=== PATIENT | female | born 1955 | race Caucasian/White ===

== ENCOUNTER 2021-12-21 18:14 | Inpatient (IN) | payer MEDICARE, MEDICAID, SELFPAY ==
--- NOTE | ~2021-12-21 | XR_ITS ---
EXAMINATION: XR CHEST CLINICAL INFORMATION: Cough and shortness of breath. COMPARISON: None TECHNIQUE: Frontal view of the chest was obtained. FINDINGS: No significant abnormality is noted involving the heart, lungs, mediastinum, bony thorax or soft tissues. There is multi-level thoracic spondylosis. XR/XR chest 1V IMPRESSION: Unremarkable examination.
[2021-12-21 18:44] VITALS: BP 137/75; PULSE 72; RESP 16; TEMP 36.6; O2SAT 97
--- NOTE | 2021-12-21 19:26 | PC.ADMIT ---
Patient is a 66 year old female admitted from [facility]. Patient arrived at the unit at 18:23 with a legal status of a CV. Patient is Patient alert and oriented x 1, to self. Patient disoriented to place, time, and situation. Patient appears to be disorganized with delusions. Patient was unable to participate in the admission process d/t mental status. Per crisis evaluation Patient eloped from respite on Tuesday, 12/18. Today the patient was assessed by [employer] and was found to be delusional, believes her leg is broken, and that a staff member is trying to abduct her. Upon assessment this evening the patient presents with delusional statements and thinking. ?I think that I am a few weeks ?. ?I feel the presence of Erika with me, do you feel Erika here??. Patient stated to a peer ?let's go to [employer] and tell them I say they have to give me all the money?. Patient reported ?Sometimes I see my son, but then he isn?t there?. Patient also reported AH ?I hear Erika at times, but when she is not with me?. Patient denies SI/HI. Presents with poor dentition. No upper teeth. Reports that My bottom teeth hurt, can you pull them out here or send me to an oral surgeon . Vital signs are stable, and within normal limits. No ebema is noted. Some healing bruises on BLE. Purplish bruises noted on the right arm, appears to be an IV site. No acute distress noted or reported. Full medical history unable to be obtained d/t mental status. 15 minute safety checks initiated. Patient reported to be a smoker since she was 15, smoking a pack a day. Noted to ambulate independently with a steady gait. No physical complaints reported at this time.
[2021-12-21] MEDS: traZODone HCL 50 MG TABLET PO (20:59)
[2021-12-22 08:00] VITALS: BP 92/59; PULSE 88; RESP 16; TEMP 36.8; O2SAT 97
[2021-12-22 09:51] LABS: Estimated Average Glucose 103 mg/dL; Hemoglobin A1c % 5.2 %
[2021-12-22 10:45] LABS: Folate 17.2 ng/mL (> or = 4.0); Vitamin B12 598 pg/mL (200-900)
[2021-12-22] MEDS: Acetaminophen 325 MG TABLET 650 MG PO ×2 (10:56→17:15)
--- NOTE | 2021-12-22 12:08 | HO.PM.IMCN ---
History of Present Illness Data of Consult Service Date: 12/22/21 Requesting physician: Rose Schumacher Primary Care Provider: Unknown Physician HPI Reason for consult: internal med H&P 66 year old female who is a 1/2-1 ppd cigarette smoker without known medical history admitted to psychiatry from [facility] ED on section 12 for psychosis. Patient is disoriented with disorganized, fragmented thought process and unable to provide most history. Able to answer basic questions with short sentences and has no complaints today. She does report chronic occasional shortness of breath and cough and is an every day smoker. No known history of chronic lung disease. Review of Systems Review of Systems: ROS limited due to patient mental status. General: +fatigue. No fevers, malaise, unintentional weight loss HEENT: No blurred vision Cardiovascular: No chest pain Respiratory: +sob, +cough. GI: No abdominal pain, nausea, vomiting, diarrhea, constipation Neuro: No headaches, weakness, paresthesias Skin: No rashes or lesions PMFSH Medical History Chronic cough Current every day smoker Psychosis Family History (Updated 12/22/21 @ 12:19 by SHERYL Becerra) Other No significant family history Pertinent family history: Unable to fully ascertain due to pt mental status Surgical History History of appendectomy Social History Household Members: Other Household Members Other:: respite Housing: Other Housing Other:: respite Do you presently have visiting nurse or other home services: No Unable to assess alcohol history related to: Unable to respond Patient Tobacco Use Status: Current everyday Tobacco user Tobacco use type: Cigarette Cigarette Packs Per Day: 1 Cigarettes Per Day: 20.0 Smoked in Last 30 Days: Yes e-Cigarette/Vaping Use: Never Used Patient Interested in Nicotine Replacement: Yes Patient Given Instructions on How to Stop Smoking: No Use of substances other than those prescribed or required for medical reasons: Unknown Substance Use Type Other:: Patient unable to participate d/t mental status. Currently Displaying Signs/Symptoms of Drug Intoxication Withdrawal: No Spiritual Healthcare Practices: Patient unable to participate d/t mental status. Cheondoism Healthcare Practices: Patient unable to participate d/t mental status. Cultural Healthcare Practices: Patient unable to participate d/t mental status. Advance Directives: No Advance Directives Information Provided: No Do you have thoughts of harming others: None Do you have a plan to hurt others: No Plan Recently lost weight without trying: Unsure How much weight loss: Unsure Nutrition Risks: Dental problems Patient : No : No Poor oral hygiene: Yes service: No Sexual orientation: Don't Know Meds Allergies Allergy/AdvReac Type Severity Reaction Status Date / Time doxycycline Allergy Unknown Unknown Verified 12/21/21 18:32 erythromycin base Allergy Unknown Unknown Verified 12/21/21 18:32 Sulfa (Sulfonamide Allergy Unknown Unknown Verified 12/21/21 18:32 Antibiotics) olanzapine AdvReac Unknown Unknown Verified 12/21/21 18:26 Active Medications: Current Medications Acetaminophen (Acetaminophen 325 Mg Tablet) 650 mg PO Q6H PRN PRN Reason: Headache/Pain Mild Scale (1-3) Last Admin: 12/22/21 10:56 Dose: 650 mg Al Hydroxide/Mg Hydroxide (Magnesium Hydrox/Alum Hydrox 30 Ml Oral.Susp) 30 ml PO Q6H PRN PRN Reason: Heartburn/Nausea Benztropine Mesylate (Benztropine Mesylate 1 Mg Tablet) 1 mg PO DAILY DAVID Guaifenesin (Guaifenesin La 600 Mg Tab.Er.12h) 1,200 mg PO BID DAVID Hydroxyzine HCl (Hydroxyzine Hcl 25 Mg Tablet) 25 mg PO Q6H PRN PRN Reason: Anxiety Magnesium Hydroxide (Milk Of Magnesia 30 Ml Oral.Susp) 30 ml PO DAILY PRN PRN Reason: Constipation Multivitamins/Vitamin C (Multivitamin Tablet) 1 tab PO DAILY DAVID Risperidone (Risperidone 3 Mg Tablet) 3 mg PO BEDTIME DAVID Trazodone HCl (Trazodone Hcl 50 Mg Tablet) 50 mg PO BEDTIME PRN PRN Reason: Insomnia Last Admin: 12/21/21 20:59 Dose: 50 mg Home Medications Medication Instructions Recorded Confirmed Last Taken Type Mucinex 1,200 mg PO Q12H 12/22/21 12/22/21 Unknown History Vitamin 1 tab PO DAILY 12/22/21 12/22/21 Unknown History Risperdal 7.5 mg PO QPM 12/22/21 12/22/21 Unknown History benztropine 1 mg tablet 1 mg PO DAILY 12/22/21 12/22/21 Unknown History Physical Exam Vital Signs and Narrative: Vital Signs: Last Vital Signs Temp 98.2 F 12/22/21 08:00 Pulse 88 12/22/21 08:00 Resp 16 12/22/21 08:00 BP 92/59 L 12/22/21 08:00 Pulse Ox 97 12/22/21 08:00 O2 Del Method 12/22/21 08:00 Constitutional - Awake and Alert, No apparent distress Eyes - PERRLA, EOMI Cardiovascular - S1S2, RRR, No edema Respiratory - Normal lung expansion, Normal respiratory effort, No respiratory distress, CTA bilaterally Gastrointestinal - NT / ND; +BS; No rebound or guarding Extremities - no calf tenderness bilaterally, no swelling Musculoskeletal - Normal inspection, normal ROM Skin - Warm/Dry Neurological - Alert & oriented to self and place, disoriented to time. Pt unable to comply with cranial nerve testing, PERRLA, EOM appear to be intact Psychological - Flat affect, disoriented, disorganized thinking with short fragmented responses Results Labs Labs: Laboratory Results - last 24 hr 12/22/21 12/22/21 09:22 09:22 Estimat Average Glucose 103 Hemoglobin A1c % 5.2 Vitamin B12 598 Folate 17.2 ECG Attestation: I personally reviewed and interpreted this ECG as follows: ECG interpretation date: 12/22/21 Interpretation: From Hollis Rogers, 12/21. Sinus bradycardia, rate 55, no St-T wave abnormalities. No prior EKG for review Assessment and Plan (1) Psychosis: Status: Acute Plan 66 year old female who is a 1.2-1ppd smoker without known medical history admitted to psychiatry for psychosis seen in consult for medical H&P on admission. 1- Psychosis- likely chronic associated with underlying psychiatric condition -Plan per psychiatry 2-Chronic cough/occassional shortness of breath -Likely secondary to smoking history with suspected underlying COPD -CXR ordered -Recommend albuterol updraft for sob prn and continue guaifenesin prn -Would likely benefit from outpatient PFT and pcp follow up outpt 3-Cigarette smoke- 1/2-1ppd -Recommend cessation counseling -Recommend 21mg nicotine patch daily for NRT
--- NOTE | 2021-12-22 17:11 | P.HPPS_ITS ---
HPI Date of Service: 12/22/21 Chief Complaint: Psychosis Sources of Information: patient interviewed, chart reviewed and crisis/core team assessment reviewed HPI Subjective Notes: Luna Warning and Conditional Voluntary Narrative: The patient is a 66-year-old female, , mother of adult children, resident of [facility] waiting for permanent placement, referred from [facility] emergency department for exacerbation of disorganized behavior. The patient was a resident of [facility] in [place] and she eloped. According to the crisis report, the patient [facility] [place] and went to her old apartment that was empty at this moment. On the emergency room, the patient was grossly disorganized with several layers of clothing, with disorganized behavior and thought process unable to take care of herself, with inpatient level care of criteria. She was transferring to this facility for psychiatric stabilization. According to the crisis report, the patient was admitted in August 2021 for psychosis and discharged to [facility] in [place] waiting for permanent housing and from there she eloped. During the interview, the patient was a very poor historian she stated that she is taking Risperdal 7.5 mg p.o. q.h.s. and Cogentin 2 mg at bedtime. She was pleasant, cooperative but extremely disoriented and confused, unable to provide reliable information. She complained also of problems with her teeth. We discussed with the patient about treatment options and she agreed to continue taking her regular medications. She denies active suicidal ideation and she is able to contract for safety in the facility. At this moment, we will have any other collateral information. The patient is a very poor historian. Past Psychiatric History: According to the [facility] crisis report, the patient was admitted on August of 2021 for psychosis and transferred to [facility]. The patient is unable to provide further information regarding of previous admissions but apparently she carries the diagnosis of schizophrenia. The review her old chart and in her 40s she was admitted into this facility for possibility of seizures and alcohol use disorder. The patient denies adamantly current use of alcohol Medical Evaluation Reviewed: Hospitalist Jd Pending [facility] Medical History Chronic cough Current every day smoker Psychosis Surgical History History of appendectomy Family History: Denies Social History: Limited social support, the patient was living alone by herself but she lost her apartment. She stated that she was and she has been divorce and she has elderly children. Substance History: History of past alcohol use disorder, she denies current use Trauma History: Denies Diagnostics Vital Signs (24Hr): Vital Signs - 24 hr 12/21/21 18:44 12/22/21 08:00 Temperature 97.9 F 98.2 F Pulse Rate 72 88 Respiratory Rate 16 16 Blood Pressure 137/75 92/59 L Pulse Oximetry 97 97 Oxygen Delivery Method Room Air Room Air Labs Labs: Laboratory Results - last 48 hr 12/22/21 12/22/21 09:22 09:22 Estimat Average Glucose 103 Hemoglobin A1c % 5.2 Vitamin B12 598 Folate 17.2 Meds/Allergies Meds Home Medications Medication Instructions Recorded Confirmed Type Mucinex 1,200 mg PO Q12H 12/22/21 12/22/21 History Vitamin 1 tab PO DAILY 12/22/21 12/22/21 History Risperdal 7.5 mg PO QPM 12/22/21 12/22/21 History benztropine 1 mg tablet 1 mg PO DAILY 12/22/21 12/22/21 History Allergies Allergies Allergy/AdvReac Type Severity Reaction Status Date / Time doxycycline Allergy Unknown Unknown Verified 12/21/21 18:32 erythromycin base Allergy Unknown Unknown Verified 12/21/21 18:32 Sulfa (Sulfonamide Allergy Unknown Unknown Verified 12/21/21 18:32 Antibiotics) olanzapine AdvReac Unknown Unknown Verified 12/21/21 18:26 Mental Status Exam Mental Status Exam Patient Appearance: Appropriate Patient Orientation: Person and Situation Level of Consciousness: Awake and Appropriate Patient Behavior: Cooperative Mood Description: Withdrawn Affect Description: Labile Patient Cognition Impaired: Yes Ability to Follow Directions: Good Speech Pattern: Clear Hallucinations: None Delusions: Paranoid Ideation Thought Process: Distracted and Evasive Thought Content: positive for [place], positive for Poverty of Content and positive for Loose Associations Judgement: Fair Assessment & Plan Assessment & Plan (1) Psychosis: Status: Acute Code(s): F29 - Unspecified psychosis not due to a substance or known physiological condition Plan The patient is an elderly female with limited social support and possible schizophrenia who [facility] [place] and 1 back to her old apartment. The patient is grossly disorganized, very poor historian and unable to take care of herself. Plan 1. Gather collateral information. 2. Continue with Risperdal Cogentin and other medications according to the medication reconciliation form. 3. Medical Treatment Patient educated on: diagnosis and therapeutic strategies Informed Consent: further education needed Reason for continued inpatient stay Substantial Risk for: inability to function, rapid decompensation and med/psych decompensation
[2021-12-22] MEDS: Benztropine Mesylate 1 MG TABLET 2 MG PO (20:35)
[2021-12-22 20:41] VITALS: BP 121/68; PULSE 64; RESP 16; TEMP 36.3; O2SAT 93
[2021-12-23] MEDS: traZODone HCL 50 MG TABLET PO ×2 (02:34→20:04)
[2021-12-23 05:56] VITALS: BMI 25.9
[2021-12-23 08:00] VITALS: BP 124/65; PULSE 68; RESP 16; TEMP 35.7; O2SAT 96
[2021-12-23] MEDS: Multivitamin TABLET 1 TAB PO (08:24)
[2021-12-23] MEDS: Acetaminophen 325 MG TABLET 650 MG PO (08:31)
--- NOTE | 2021-12-23 16:22 | HO.PSYCHPN ---
Subjective Subjective Date of Service: 12/23/21 Reason For Visit: Psychosis Subjective Notes: Conditional Voluntary Interim History: The nursing staff reported the patient has been delusional stating that she had been . Chest x-ray came back unremarkable and she has COPD because she is a heavy smoker. On interview the patient denies new symptoms . Mental Status Exam Mental Status Exam Patient Appearance: Well Grooomed Patient Orientation: Person and Situation Level of Consciousness: Awake Patient Behavior: Cooperative Mood Description: Constricted Affect Description: Withdrawn Patient Cognition Impaired: Yes Ability to Follow Directions: Good Speech Pattern: Clear Hallucinations: None Delusions: Paranoid Ideation and Bizarre Thought Content: positive for Loose Associations Judgement: Fair Diagnostics Vital Signs (24Hr): Vital Signs - 24 hr 12/22/21 20:41 12/23/21 08:00 Temperature 97.3 F 96.2 F L Pulse Rate 64 68 Respiratory Rate 16 16 Blood Pressure 121/68 124/65 Pulse Oximetry 93 96 Oxygen Delivery Method Room Air Room Air BMI result Body Mass Index 25.9 Labs Labs: Laboratory Results - last 48 hr 12/22/21 12/22/21 09:22 09:22 Estimat Average Glucose 103 Hemoglobin A1c % 5.2 Vitamin B12 598 Folate 17.2 Imaging Radiology Impressions: ITS Impressions Chest X-Ray 12/22/21 13:29 IMPRESSION: Unremarkable examination. Medications Medications Current Medications Acetaminophen (Acetaminophen 325 Mg Tablet) 650 mg PO Q6H PRN PRN Reason: Headache/Pain Mild Scale (1-3) Last Admin: 12/23/21 08:31 Dose: 650 mg Al Hydroxide/Mg Hydroxide (Magnesium Hydrox/Alum Hydrox 30 Ml Oral.Susp) 30 ml PO Q6H PRN PRN Reason: Heartburn/Nausea Benztropine Mesylate (Benztropine Mesylate 1 Mg Tablet) 2 mg PO BEDTIME DAVID Last Admin: 12/22/21 20:35 Dose: 2 mg Hydroxyzine HCl (Hydroxyzine Hcl 25 Mg Tablet) 25 mg PO Q6H PRN PRN Reason: Anxiety Magnesium Hydroxide (Milk Of Magnesia 30 Ml Oral.Susp) 30 ml PO DAILY PRN PRN Reason: Constipation Multivitamins/Vitamin C (Multivitamin Tablet) 1 tab PO DAILY DAVID Last Admin: 12/23/21 08:24 Dose: 1 tab Nicotine Polacrilex (Nicotine Polacrilex 2 Mg Gum) 2 mg BUCCAL Q2H PRN PRN Reason: tobacco cravings Risperidone 6 mg/ Risperidone (1 mg/ Risperidone 0.5 mg) 7.5 mg PO BEDTIME DAVID Last Admin: 12/22/21 20:55 Dose: 7.5 mg Trazodone HCl (Trazodone Hcl 50 Mg Tablet) 50 mg PO BEDTIME PRN PRN Reason: Insomnia Last Admin: 12/23/21 02:34 Dose: 50 mg Allergies Allergies Allergy/AdvReac Type Severity Reaction Status Date / Time doxycycline Allergy Unknown Unknown Verified 12/21/21 18:32 erythromycin base Allergy Unknown Unknown Verified 12/21/21 18:32 Sulfa (Sulfonamide Allergy Unknown Unknown Verified 12/21/21 18:32 Antibiotics) olanzapine AdvReac Unknown Unknown Verified 12/21/21 18:26 Assessment & Plan Assessment & Plan (1) Psychosis: Status: Acute Code(s): F29 - Unspecified psychosis not due to a substance or known physiological condition Plan 66 year old female who is a 1.2-1ppd smoker without known medical history admitted to psychiatry for psychosis seen in consult for medical H&P on admission. 1- Psychosis- likely chronic associated with underlying psychiatric condition -Plan per psychiatry 2-Chronic cough/occassional shortness of breath -Likely secondary to smoking history with suspected underlying COPD -CXR ordered -Recommend albuterol updraft for sob prn and continue guaifenesin prn -Would likely benefit from outpatient PFT and pcp follow up outpt 3-Cigarette smoke- 1/2-1ppd -Recommend cessation counseling -Recommend 21mg nicotine patch daily for NRT I spent ___20___ minutes with the patient and/or on the patient floor today, greater than?50% of which was spent counseling/coordinating care. Reason for contiued inpatient stay Substantial Risk for: inability to function, rapid decompensation and med/psych decompensation
[2021-12-23 18:00] VITALS: BP 125/58; PULSE 71; RESP 18; TEMP 36.4; O2SAT 94
[2021-12-23] MEDS: Benztropine Mesylate 1 MG TABLET 2 MG PO (20:04)
[2021-12-23] MEDS: Magnesium Hydrox/Alum Hydrox 30 ML ORAL.SUSP PO (20:30)
[2021-12-24] MEDS: traZODone HCL 50 MG TABLET PO (02:10)
[2021-12-24 07:00] VITALS: BP 131/72; PULSE 64; RESP 17; TEMP 35.9; O2SAT 96
[2021-12-24 08:16] LABS: Estimated Average Glucose 103 mg/dL; Hemoglobin A1c % 5.2 %
[2021-12-24 08:24] LABS: Alanine Aminotransferase 18 U/L (0-31); Albumin Level 3.7 g/dL (3.5-5.0); Alkaline Phosphatase 74 U/L (39-117); Anion Gap 13 (12-20); Aspartate Amino Transferase 16 U/L (5-31); Bilirubin Total 0.3 mg/dL (0.0-1.0); Blood Urea Nitrogen 15 mg/dL (9-16); Calcium 8.7 mg/dL (8.4-10.2); Carbon Dioxide 27 mmol/L (22-29); Chloride 99 mmol/L (96-108); Cholesterol 146 mg/dL; Creatinine Clr Calc Pharmacy 71.1; Estimated Glomerular Filt Rate > 60; Glucose Fasting 101 mg/dL (60-99); HDL Cholesterol 53 mg/dL; LDL Cholesterol Calculated 73 mg/dl; Potassium 4.7 mmol/L (3.3-5.1); Sodium 134 mmol/L (135-145); Total Protein 6.2 g/dL (6.5-8.0); Triglycerides 102 mg/dL
[2021-12-24 08:46] LABS: TSH reflex Free T4 1.21 uIU/mL (0.32-4.0)
[2021-12-24] MEDS: Acetaminophen 325 MG TABLET 650 MG PO ×2 (09:55→20:15)
[2021-12-24] MEDS: Magnesium Hydrox/Alum Hydrox 30 ML ORAL.SUSP PO ×3 (09:55→22:55)
--- NOTE | 2021-12-24 15:54 | HO.PSYCHPN ---
Subjective Subjective Date of Service: 12/24/21 Reason For Visit: Psychosis Subjective Notes: Conditional Voluntary Interim History: The nursing staff reported the patient has been delusional stating that she had been . Chest x-ray came back unremarkable and she has COPD because she is a heavy smoker. On interview the patient denies new symptoms . Mental Status Exam Mental Status Exam Patient Appearance: Well Grooomed Patient Orientation: Person and Situation Level of Consciousness: Awake Patient Behavior: Cooperative Mood Description: Constricted Affect Description: Withdrawn Patient Cognition Impaired: Yes Ability to Follow Directions: Good Speech Pattern: Clear Hallucinations: None Delusions: Paranoid Ideation and Bizarre Thought Content: positive for Loose Associations Judgement: Fair Diagnostics Vital Signs (24Hr): Vital Signs - 24 hr 12/23/21 18:00 Temperature 97.6 F Pulse Rate 71 Respiratory Rate 18 Blood Pressure 125/58 L Pulse Oximetry 94 Oxygen Delivery Method Room Air BMI result Body Mass Index 25.9 Labs Results: 12/24/21 08:00 Labs: Laboratory Results - last 48 hr 12/24/21 12/24/21 08:00 08:00 Sodium 134 L Potassium 4.7 Chloride 99 Carbon Dioxide 27 Anion Gap 13 BUN 15 Creatinine 0.73 Estim Creat Clear Calc 71.1 Estimated GFR > 60 Fasting Glucose 101 H Estimat Average Glucose 103 Hemoglobin A1c % 5.2 Calcium 8.7 Total Bilirubin 0.3 AST 16 ALT 18 Alkaline Phosphatase 74 Total Protein 6.2 L Albumin 3.7 Triglycerides 102 Cholesterol 146 LDL Cholesterol, Calc 73 HDL Cholesterol 53 TSH 1.21 Imaging Radiology Impressions: ITS Impressions Chest X-Ray 12/22/21 13:29 IMPRESSION: Unremarkable examination. Medications Medications Current Medications Acetaminophen (Acetaminophen 325 Mg Tablet) 650 mg PO Q6H PRN PRN Reason: Headache/Pain Mild Scale (1-3) Last Admin: 12/24/21 09:55 Dose: 650 mg Al Hydroxide/Mg Hydroxide (Magnesium Hydrox/Alum Hydrox 30 Ml Oral.Susp) 30 ml PO Q6H PRN PRN Reason: Heartburn/Nausea Last Admin: 12/24/21 14:48 Dose: 30 ml Benztropine Mesylate (Benztropine Mesylate 1 Mg Tablet) 2 mg PO BEDTIME DAVID Last Admin: 12/23/21 20:04 Dose: 2 mg Hydroxyzine HCl (Hydroxyzine Hcl 25 Mg Tablet) 25 mg PO Q6H PRN PRN Reason: Anxiety Magnesium Hydroxide (Milk Of Magnesia 30 Ml Oral.Susp) 30 ml PO DAILY PRN PRN Reason: Constipation Multivitamins/Vitamin C (Multivitamin Tablet) 1 tab PO DAILY [facility] Last Admin: 12/24/21 09:56 Dose: Not Given Nicotine Polacrilex (Nicotine Polacrilex 2 Mg Gum) 2 mg BUCCAL Q2H PRN PRN Reason: tobacco cravings Risperidone 6 mg/ Risperidone (1 mg/ Risperidone 0.5 mg) 7.5 mg PO BEDTIME [facility] Last Admin: 12/23/21 20:05 Dose: 7.5 mg Trazodone HCl (Trazodone Hcl 50 Mg Tablet) 50 mg PO BEDTIME PRN PRN Reason: Insomnia Last Admin: 12/24/21 02:10 Dose: 50 mg Allergies Allergies Allergy/AdvReac Type Severity Reaction Status Date / Time doxycycline Allergy Unknown Unknown Verified 12/21/21 18:32 erythromycin base Allergy Unknown Unknown Verified 12/21/21 18:32 Sulfa (Sulfonamide Allergy Unknown Unknown Verified 12/21/21 18:32 Antibiotics) olanzapine AdvReac Unknown Unknown Verified 12/21/21 18:26 Assessment & Plan Assessment & Plan (1) Psychosis: Status: Acute Code(s): F29 - Unspecified psychosis not due to a substance or known physiological condition Plan 66 year old female who is a 1.2-1ppd smoker without known medical history admitted to psychiatry for psychosis seen in consult for medical H&P on admission. 1- Psychosis- likely chronic associated with underlying psychiatric condition -Plan per psychiatry 2-Chronic cough/occassional shortness of breath -Likely secondary to smoking history with suspected underlying COPD -CXR ordered -Recommend albuterol updraft for sob prn and continue guaifenesin prn -Would likely benefit from outpatient PFT and pcp follow up outpt 3-Cigarette smoke- 1/2-1ppd -Recommend cessation counseling -Recommend 21mg nicotine patch daily for NRT Eight Continue Risperdal discharge planning I spent minutes with the patient and/or on the patient floor today, greater than?50% of which was spent counseling/coordinating care. Reason for contiued inpatient stay Substantial Risk for: rapid decompensation
[2021-12-24 18:00] VITALS: BP 111/59; PULSE 69; RESP 17; TEMP 36.8; O2SAT 93
[2021-12-24] MEDS: Benztropine Mesylate 1 MG TABLET 2 MG PO (20:06)
[2021-12-25] MEDS: Multivitamin TABLET 1 TAB PO (08:57)
[2021-12-25 09:10] VITALS: BP 126/60; PULSE 78; RESP 16; TEMP 35.8; O2SAT 96
[2021-12-25] MEDS: Acetaminophen 325 MG TABLET 650 MG PO ×2 (11:51→17:55)
[2021-12-25 18:00] VITALS: BP 117/55; PULSE 71; RESP 16; TEMP 36.7; O2SAT 94
[2021-12-25] MEDS: Benztropine Mesylate 1 MG TABLET 2 MG PO (19:57)
[2021-12-25] MEDS: traZODone HCL 50 MG TABLET PO (19:58)
[2021-12-25] MEDS: Magnesium Hydrox/Alum Hydrox 30 ML ORAL.SUSP PO (20:41)
[2021-12-25] MEDS: guaiFENesin 100 MG/5 ML LIQUID PO (20:41)
--- NOTE | 2021-12-25 23:59 | P.PNPSI_ITS ---
Subjective Subjective Date of Service: 12/25/21 Reason For Visit: Psychosis Healthcare Proxy: No Guardianship: No Interim History: pt withdrawn paranoid concerns pos brenner limited insight needs cueing for ADL Medication Compliance: Yes Mental Status Exam Mental Status Exam Patient Appearance: Appropriate Patient Orientation: Person Level of Consciousness: Awake and Alert Patient Behavior: Talkative, Cooperative, Distractible, Confused and Good Eye Contact Mood Description: Calm and Withdrawn Affect Description: Calm and Withdrawn Patient Cognition Impaired: Yes Ability to Follow Directions: Poor Speech Pattern: Spontaneous Speech Memory Description: Remote Impaired, Immediate Impaired, Halfway Impaired and Episodic Impaired Hallucinations: None Delusions: Not Present Perceptual Disturbances: Derealization Thought Process: Disoriented, Illogical, Distracted, Slowed Thinking and Confusion Thought Content: positive for Flight of Ideas, positive for Loose Associations, positive for Slowed Thinking, positive for Tangential and positive for Disorganized Depressive Symptoms: Loss of Energy Judgement: Poor Diagnostics Vital Signs (24Hr): Vital Signs - 24 hr 12/25/21 09:10 12/25/21 18:00 Temperature 96.4 F L 98.1 F Pulse Rate 78 71 Respiratory Rate 16 16 Blood Pressure 126/60 117/55 L Pulse Oximetry 96 94 Oxygen Delivery Method Room Air Room Air BMI result Body Mass Index 25.9 Labs Results: 12/28/21 07:48 Labs: Laboratory Results - last 48 hr 12/24/21 12/24/21 08:00 08:00 Sodium 134 L Potassium 4.7 Chloride 99 Carbon Dioxide 27 Anion Gap 13 BUN 15 Creatinine 0.73 Estim Creat Clear Calc 71.1 Estimated GFR > 60 Fasting Glucose 101 H Estimat Average Glucose 103 Hemoglobin A1c % 5.2 Calcium 8.7 Total Bilirubin 0.3 AST 16 ALT 18 Alkaline Phosphatase 74 Total Protein 6.2 L Albumin 3.7 Triglycerides 102 Cholesterol 146 LDL Cholesterol, Calc 73 HDL Cholesterol 53 TSH 1.21 Imaging Radiology Impressions: ITS Impressions Chest X-Ray 12/22/21 13:29 IMPRESSION: Unremarkable examination. Medications Medications Current Medications Acetaminophen (Acetaminophen 325 Mg Tablet) 650 mg PO Q6H PRN PRN Reason: Headache/Pain Mild Scale (1-3) Last Admin: 12/25/21 17:55 Dose: 650 mg Al Hydroxide/Mg Hydroxide (Magnesium Hydrox/Alum Hydrox 30 Ml Oral.Susp) 30 ml PO Q6H PRN PRN Reason: Heartburn/Nausea Last Admin: 12/25/21 20:41 Dose: 30 ml Benztropine Mesylate (Benztropine Mesylate 1 Mg Tablet) 2 mg PO BEDTIME [facility] Last Admin: 12/25/21 19:57 Dose: 2 mg Guaifenesin (Guaifenesin 100 Mg/5 Ml Liquid) 5 ml PO Q4H PRN PRN Reason: cough,wheeze Last Admin: 12/25/21 20:41 Dose: 5 ml Hydroxyzine HCl (Hydroxyzine Hcl 25 Mg Tablet) 25 mg PO Q6H PRN PRN Reason: Anxiety Magnesium Hydroxide (Milk Of Magnesia 30 Ml Oral.Susp) 30 ml PO DAILY PRN PRN Reason: Constipation Multivitamins/Vitamin C (Multivitamin Tablet) 1 tab PO DAILY [facility] Last Admin: 12/25/21 08:57 Dose: 1 tab Nicotine (Nicotine 14 Mg Patch.Td24) 14 mg TRANSDERMA DAILY [facility] Nicotine Polacrilex (Nicotine Polacrilex 2 Mg Gum) 2 mg BUCCAL Q2H PRN PRN Reason: tobacco cravings Risperidone 6 mg/ Risperidone (1 mg/ Risperidone 0.5 mg) 7.5 mg PO BEDTIME [facility] Last Admin: 12/25/21 19:57 Dose: 7.5 mg Trazodone HCl (Trazodone Hcl 50 Mg Tablet) 50 mg PO BEDTIME PRN PRN Reason: Insomnia Last Admin: 12/25/21 19:58 Dose: 50 mg Allergies Allergies Allergy/AdvReac Type Severity Reaction Status Date / Time doxycycline Allergy Unknown Unknown Verified 12/21/21 18:32 erythromycin base Allergy Unknown Unknown Verified 12/21/21 18:32 Sulfa (Sulfonamide Allergy Unknown Unknown Verified 12/21/21 18:32 Antibiotics) olanzapine AdvReac Unknown Unknown Verified 12/21/21 18:26 Assessment & Plan Assessment & Plan (1) Psychosis: Status: Acute Code(s): F29 - Unspecified psychosis not due to a substance or known physiological condition Plan 66 year old female who is a 1.2-1ppd smoker without known medical history admitted to psychiatry for psychosis seen in consult for medical H&P on admission. 1- Psychosis- likely chronic associated with underlying psychiatric condition -Plan per psychiatry 2-Chronic cough/occassional shortness of breath -Likely secondary to smoking history with suspected underlying COPD -CXR ordered -Recommend albuterol updraft for sob prn and continue guaifenesin prn -Would likely benefit from outpatient PFT and pcp follow up outpt 3-Cigarette smoke- 1/2-1ppd -Recommend cessation counseling -Recommend 21mg nicotine patch daily for NRT Eight Continue Risperdal discharge planning 12/25/21 Cont risp po can inc 8 mg ? depot JIMENEZ I spent minutes with the patient and/or on the patient floor today, greater than?50% of which was spent counseling/coordinating care. Patient educated on: diagnosis and medication risk/benefits Reason for contiued inpatient stay Substantial Risk for: inability to function and med/psych decompensation
[2021-12-26 06:00] VITALS: BP 139/66; PULSE 67; RESP 14; TEMP 36.3; O2SAT 96
[2021-12-26] MEDS: Multivitamin TABLET 1 TAB PO (08:21)
[2021-12-26] MEDS: Nicotine 14 MG PATCH.TD24 TRANSDERMA (09:06)
--- NOTE | 2021-12-26 16:50 | P.PNPSI_ITS ---
Subjective Subjective Date of Service: 12/26/21 Reason For Visit: Psychosis Interim History: Briana is in the milieu, sitting alone. She is calmly engaged when we meet, stating, you look like someone who I can have a cigarette with, let's go do that. Discussed her treatment and concern that we will put foreign drugs in her medications that will make her feel intoxicated. States Risperdal and Benztropine have helped her the most. Reports she takes Tylenol for Left Hip and Right Rib pain-deneis current pain. Difficult to understand at times as her dentition is impaired. Team reports poor insight, med seeking sx and dysphagia. SE: Pt denies, no significant tremor or EPS noted Sleep/Appetite: pt reports she is often awake at 2am and returning to bed thereafter. She denies appetite issues. Medical: 139/66; 67; 14, 97.3, 96 12/24: Na 134, T Prot 6.2 Denies current SI plan or intent Well engaged, smiling, wanting to interact today. Medication Compliance: Yes Side effects from medications: No Attending Groups: No Review of Systems Acute medical concerns: Yes Daily smoker; ?COPD, cough Medical Review of Systems: changed Review of Systems Reports confusion and Reports memory loss Psychiatric: Reports abnormal sleep pattern, Reports confusion, Reports difficulty concentrating, Reports memory loss, Reports hallucinations and Reports suicidal ideation (SI on admit, denies today) Mental Status Exam Mental Status Exam Patient Appearance: Well Grooomed and Fatigued Patient Orientation: Person Level of Consciousness: Awake and Alert Patient Behavior: Talkative, Cooperative, Distractible, Confused and Good Eye Contact Mood Description: Calm and Withdrawn Affect Description: Calm and Withdrawn Patient Cognition Impaired: Yes Ability to Follow Directions: Poor Speech Pattern: Spontaneous Speech Memory Description: Remote Impaired, Immediate Impaired, Shelter Impaired and Episodic Impaired Hallucinations: None Delusions: Not Present Perceptual Disturbances: Derealization Thought Process: Disoriented, Illogical, Distracted, Slowed Thinking and Confusion Thought Content: positive for Flight of Ideas, positive for Loose Associations, positive for Slowed Thinking, positive for Tangential and positive for Disorganized Depressive Symptoms: Loss of Energy Judgement: Poor Diagnostics Vital Signs (24Hr): Vital Signs - 24 hr 12/25/21 18:00 12/26/21 06:00 Temperature 98.1 F 97.3 F Pulse Rate 71 67 Respiratory Rate 16 14 Blood Pressure 117/55 L 139/66 Pulse Oximetry 94 96 Oxygen Delivery Method Room Air Room Air BMI result Body Mass Index 25.9 Labs Results: 12/24/21 08:00 Imaging Radiology Impressions: ITS Impressions Chest X-Ray 12/22/21 13:29 IMPRESSION: Unremarkable examination. Medications Medications Current Medications Acetaminophen (Acetaminophen 325 Mg Tablet) 650 mg PO Q6H PRN PRN Reason: Headache/Pain Mild Scale (1-3) Last Admin: 12/25/21 17:55 Dose: 650 mg Al Hydroxide/Mg Hydroxide (Magnesium Hydrox/Alum Hydrox 30 Ml Oral.Susp) 30 ml PO Q6H PRN PRN Reason: Heartburn/Nausea Last Admin: 12/25/21 20:41 Dose: 30 ml Benztropine Mesylate (Benztropine Mesylate 1 Mg Tablet) 2 mg PO BEDTIME [facility] Last Admin: 12/25/21 19:57 Dose: 2 mg Guaifenesin (Guaifenesin 100 Mg/5 Ml Liquid) 5 ml PO Q4H PRN PRN Reason: cough,wheeze Last Admin: 12/25/21 20:41 Dose: 5 ml Hydroxyzine HCl (Hydroxyzine Hcl 25 Mg Tablet) 25 mg PO Q6H PRN PRN Reason: Anxiety Magnesium Hydroxide (Milk Of Magnesia 30 Ml Oral.Susp) 30 ml PO DAILY PRN PRN Reason: Constipation Multivitamins/Vitamin C (Multivitamin Tablet) 1 tab PO DAILY [facility] Last Admin: 12/26/21 08:21 Dose: 1 tab Nicotine (Nicotine 14 Mg Patch.Td24) 14 mg TRANSDERMA DAILY [facility] Last Admin: 12/26/21 09:06 Dose: 14 mg Nicotine Polacrilex (Nicotine Polacrilex 2 Mg Gum) 2 mg BUCCAL Q2H PRN PRN Reason: tobacco cravings Risperidone 6 mg/ Risperidone (1 mg/ Risperidone 0.5 mg) 7.5 mg PO BEDTIME [facility] Last Admin: 12/25/21 19:57 Dose: 7.5 mg Trazodone HCl (Trazodone Hcl 50 Mg Tablet) 50 mg PO BEDTIME PRN PRN Reason: Insomnia Last Admin: 12/25/21 19:58 Dose: 50 mg Allergies Allergies Allergy/AdvReac Type Severity Reaction Status Date / Time doxycycline Allergy Unknown Unknown Verified 12/21/21 18:32 erythromycin base Allergy Unknown Unknown Verified 12/21/21 18:32 Sulfa (Sulfonamide Allergy Unknown Unknown Verified 12/21/21 18:32 Antibiotics) olanzapine AdvReac Unknown Unknown Verified 12/21/21 18:26 Assessment & Plan Assessment & Plan (1) Psychosis: Status: Acute Code(s): F29 - Unspecified psychosis not due to a substance or known physiological condition Assessment and Plan: 12/26/21- Calm in presentation today, non suicidal. Na 134 on 12/24, repeat BMP 12/28 Continue current medication regime. Plan 66 year old female who is a 1.2-1ppd smoker without known medical history admitted to psychiatry for psychosis seen in consult for medical H&P on admission. 1- Psychosis- likely chronic associated with underlying psychiatric condition -Plan per psychiatry 2-Chronic cough/occassional shortness of breath -Likely secondary to smoking history with suspected underlying COPD -CXR ordered -Recommend albuterol updraft for sob prn and continue guaifenesin prn -Would likely benefit from outpatient PFT and pcp follow up outpt 3-Cigarette smoke- 1/2-1ppd -Recommend cessation counseling -Recommend 21mg nicotine patch daily for NRT Eight Continue Risperdal discharge planning I spent minutes with the patient and/or on the patient floor today, greater than?50% of which was spent counseling/coordinating care. Informed Consent: does not understand Reason for contiued inpatient stay Substantial Risk for: harm to self, harm to others, inability to function, rapid decompensation and med/psych decompensation
[2021-12-26 19:50] VITALS: BP 126/72; PULSE 70; RESP 16; O2SAT 97
[2021-12-26] MEDS: Benztropine Mesylate 1 MG TABLET 2 MG PO (20:42)
[2021-12-26] MEDS: traZODone HCL 50 MG TABLET PO (20:43)
[2021-12-27 07:25] VITALS: BP 118/60; PULSE 65; RESP 16; TEMP 36.4; O2SAT 96
[2021-12-27] MEDS: Multivitamin TABLET 1 TAB PO (08:19)
[2021-12-27] MEDS: Nicotine 14 MG PATCH.TD24 TRANSDERMA (08:19)
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
[2021-12-27] MEDS: Acetaminophen 325 MG TABLET 650 MG PO (16:41)
[2021-12-27 18:00] VITALS: BP 119/58; PULSE 61; RESP 16; TEMP 37; O2SAT 95
[2021-12-27] MEDS: Benztropine Mesylate 1 MG TABLET 2 MG PO (20:26)
[2021-12-28] MEDS: Acetaminophen 325 MG TABLET 650 MG PO ×2 (05:16→14:10)
[2021-12-28 06:00] VITALS: BP 120/60; PULSE 60; RESP 18; TEMP 36.9; O2SAT 98
[2021-12-28 08:46] LABS: Anion Gap 13 (12-20); Blood Urea Nitrogen 16 mg/dL (9-16); Calcium 9.6 mg/dL (8.4-10.2); Carbon Dioxide 29 mmol/L (22-29); Chloride 99 mmol/L (96-108); Estimated Glomerular Filt Rate > 60; Glucose Random 87 mg/dL (60-115); Potassium 4.8 mmol/L (3.3-5.1); Sodium 136 mmol/L (135-145)
[2021-12-28] MEDS: Nicotine 14 MG PATCH.TD24 TRANSDERMA (10:22)
[2021-12-28] MEDS: Multivitamin TABLET 1 TAB PO (10:22)
[2021-12-28] MEDS: guaiFENesin 100 MG/5 ML LIQUID PO (10:22)
[2021-12-28 10:35] LABS: COVID-19 Test Negative (Negative)
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
[2021-12-28] MEDS: Benztropine Mesylate 1 MG TABLET 2 MG PO (20:46)
[2021-12-28] MEDS: traZODone HCL 50 MG TABLET PO (20:47)
[2021-12-28 23:07] VITALS: BP 112/53; PULSE 77; RESP 16; TEMP 36.6; O2SAT 96
[2021-12-29] MEDS: Nicotine 14 MG PATCH.TD24 TRANSDERMA (08:36)
[2021-12-29] MEDS: guaiFENesin 100 MG/5 ML LIQUID PO (14:04)
[2021-12-29] MEDS: Acetaminophen 325 MG TABLET 650 MG PO (14:39)
[2021-12-29] MEDS: Magnesium Hydrox/Alum Hydrox 30 ML ORAL.SUSP PO (14:40)
[2021-12-29 18:00] VITALS: BP 115/53; PULSE 86; RESP 20; TEMP 36.3; O2SAT 95
[2021-12-29] MEDS: Benztropine Mesylate 1 MG TABLET 2 MG PO (20:25)
--- NOTE | 2021-12-29 21:51 | HO.PSYCHPN ---
Subjective Subjective Date of Service: 12/29/21 Reason For Visit: Psychosis Subjective Notes: Luna Warning and Conditional Voluntary Healthcare Proxy: No Guardianship: No Medical Problems Affecting Mental Status: No Interim History: I spoke with pt's team, she is reportedly at baseline. Pt has a half-way respite bed through [employer] [facility] that she can safely return to. There have been no behavioral or mood concerns while inpatient. No issues with impulsivity. Pt is eating and sleeping well. I attempted to evaluate pt this evening, however she declined interview as she is going into the shower. Medication Compliance: Yes Side effects from medications: No Attending Groups: Intermittent Review of Systems Acute medical concerns: No Medical Review of Systems: unchanged Mental Status Exam Mental Status Exam Narrative: Patient Appearance: Well Grooomed Patient Orientation: Person and Situation Level of Consciousness: Awake Patient Behavior: Cooperative Mood Description: Constricted Affect Description: Withdrawn Patient Cognition Impaired: Yes Ability to Follow Directions: Good Speech Pattern: Clear Hallucinations: None Delusions: Paranoid Ideation and Bizarre Thought Content: positive for Loose Associations Judgment: Fair Diagnostics Vital Signs (24Hr): Vital Signs - 24 hr 12/28/21 23:07 12/29/21 18:00 Temperature 98 F 97.3 F Pulse Rate 77 86 Respiratory Rate 16 20 Blood Pressure 112/53 L 115/53 L Pulse Oximetry 96 95 Oxygen Delivery Method Room Air BMI result Body Mass Index 25.9 Labs Results: 12/28/21 07:48 Labs: Laboratory Results - last 48 hr 12/28/21 12/28/21 07:48 10:00 Sodium 136 Potassium 4.8 Chloride 99 Carbon Dioxide 29 Anion Gap 13 BUN 16 Creatinine 0.81 Estim Creat Clear Calc 64.0 Estimated GFR > 60 Random Glucose 87 Calcium 9.6 D COVID-19 ([facility]) Negative COVID-19 Clin Com See Note Imaging Radiology Impressions: ITS Impressions Chest X-Ray 12/22/21 13:29 IMPRESSION: Unremarkable examination. Medications Medications Current Medications Acetaminophen (Acetaminophen 325 Mg Tablet) 650 mg PO Q6H PRN PRN Reason: Headache/Pain Mild Scale (1-3) Last Admin: 12/29/21 14:39 Dose: 650 mg Al Hydroxide/Mg Hydroxide (Magnesium Hydrox/Alum Hydrox 30 Ml Oral.Susp) 30 ml PO Q6H PRN PRN Reason: Heartburn/Nausea Last Admin: 12/29/21 14:40 Dose: 30 ml Albuterol Sulfate (Albuterol Sulfate 90 Mcg 8 Gm Inhaler) 2 puff INHALE Q4H PRN PRN Reason: SOB, wheezing Benztropine Mesylate (Benztropine Mesylate 1 Mg Tablet) 2 mg PO BEDTIME [facility] Last Admin: 12/29/21 20:25 Dose: 2 mg Guaifenesin (Guaifenesin 100 Mg/5 Ml Liquid) 5 ml PO Q4H PRN PRN Reason: cough,wheeze Last Admin: 12/29/21 14:04 Dose: 5 ml Hydroxyzine HCl (Hydroxyzine Hcl 25 Mg Tablet) 25 mg PO Q6H PRN PRN Reason: Anxiety Magnesium Hydroxide (Milk Of Magnesia 30 Ml Oral.Susp) 30 ml PO DAILY PRN PRN Reason: Constipation Multivitamins/Vitamin C (Multivitamin Tablet) 1 tab PO DAILY [facility] Last Admin: 12/29/21 08:42 Dose: Not Given Nicotine (Nicotine 14 Mg Patch.Td24) 14 mg TRANSDERMA DAILY [facility] Last Admin: 12/29/21 08:36 Dose: 14 mg Nicotine Polacrilex (Nicotine Polacrilex 2 Mg Gum) 2 mg BUCCAL Q2H PRN PRN Reason: tobacco cravings Risperidone 6 mg/ Risperidone (1 mg/ Risperidone 0.5 mg) 7.5 mg PO BEDTIME [facility] Last Admin: 12/29/21 20:25 Dose: 7.5 mg Trazodone HCl (Trazodone Hcl 50 Mg Tablet) 50 mg PO BEDTIME PRN PRN Reason: Insomnia Last Admin: 12/28/21 20:47 Dose: 50 mg Allergies Allergies Allergy/AdvReac Type Severity Reaction Status Date / Time doxycycline Allergy Unknown Unknown Verified 12/21/21 18:32 erythromycin base Allergy Unknown Unknown Verified 12/21/21 18:32 Sulfa (Sulfonamide Allergy Unknown Unknown Verified 12/21/21 18:32 Antibiotics) olanzapine AdvReac Unknown Unknown Verified 12/21/21 18:26 Assessment & Plan Assessment & Plan (1) Psychosis: Status: Acute Code(s): F29 - Unspecified psychosis not due to a substance or known physiological condition Plan 66 y.o. female with limited social support and possible schizophrenia who eloped from [facility] [employer] [facility] respite in [place] and went back to her old apartment that was in condemned conditions. The patient is grossly disorganized, very poor historian and unable to take care of herself. Pt seen by hospitalist for routine exam, CXR did not show acute pathology. Will re-start PRN albuterol, continue guaifenesin PRN due to cough. Given nicotine patch. Plan 1. Gather collateral information.? 2. Continue with Risperdal Cogentin and other medications according to the medication reconciliation form.? 3. Medical Treatment 12/28: pt appears at baseline, has half-way respite bed waiting for her upon discharge. 12/29: No med changes today I spent minutes with the patient and/or on the patient floor today, greater than?50% of which was spent counseling/coordinating care. Patient educated on: other Reason for contiued inpatient stay Substantial Risk for: inability to function and med/psych decompensation
[2021-12-30 06:00] VITALS: BP 127/60; PULSE 65; RESP 15; TEMP 37.3; O2SAT 94
[2021-12-30] MEDS: Nicotine 14 MG PATCH.TD24 TRANSDERMA (07:59)
[2021-12-30] MEDS: guaiFENesin 100 MG/5 ML LIQUID PO ×2 (11:23→21:09)
[2021-12-30 11:37] LABS: IDNOW Serial# 16C4AD1C
[2021-12-30 11:38] LABS: COVID-19 Test Negative (Negative)
--- NOTE | 2021-12-30 16:40 | P.PNPSI_ITS ---
Subjective Subjective Date of Service: 12/30/21 Reason For Visit: Psychosis Subjective Notes: Luna Warning and Conditional Voluntary Interim History: I spoke with pt's team, her risperdal was changed to 8 mg at bedtime to ease adherence, as pt did not like that the pills on formulary at the hospital look different than her medications at home, says they were giving me the red pill and made me not like myself. I spoke with pt this evening. Pt says her mood is great. She understands that she is discharging tomorrow to a new [facility] respite bed through [facility] [employer] in [place], happy that its not her previous respite and says she hopes it is better. Still complains that she wakes up every night at 2am but able to fall back to sleep and denies concerns with her energy in the day. Says she is most looking forward to smoking a cigarette when she leaves. Says she feels safe. Denies SI/SIB. Denies A/VH. Medication Compliance: Yes Side effects from medications: No Attending Groups: Intermittent Review of Systems Acute medical concerns: No Medical Review of Systems: unchanged Mental Status Exam Mental Status Exam Narrative: Patient Appearance: Well Grooomed Patient Orientation: Person and Situation Level of Consciousness: Awake Patient Behavior: Cooperative Mood Description: Constricted Affect Description: Withdrawn Patient Cognition Impaired: Yes Ability to Follow Directions: Good Speech Pattern: Clear Hallucinations: None Delusions: Paranoid Ideation and Bizarre Thought Content: positive for Loose Associations Judgment: Fair Diagnostics Vital Signs (24Hr): Vital Signs - 24 hr 12/29/21 18:00 12/30/21 06:00 Temperature 97.3 F 99.1 F Pulse Rate 86 65 Respiratory Rate 20 15 Blood Pressure 115/53 L 127/60 Pulse Oximetry 95 94 Oxygen Delivery Method Room Air Room Air BMI result Body Mass Index 25.9 Labs Results: 12/28/21 07:48 Labs: Laboratory Results - last 48 hr 12/30/21 11:14 COVID-19 ([facility]) Negative COVID-19 Clin Com See Note Imaging Radiology Impressions: ITS Impressions Chest X-Ray 12/22/21 13:29 IMPRESSION: Unremarkable examination. Medications Medications Current Medications Acetaminophen (Acetaminophen 325 Mg Tablet) 650 mg PO Q6H PRN PRN Reason: Headache/Pain Mild Scale (1-3) Last Admin: 12/29/21 14:39 Dose: 650 mg Al Hydroxide/Mg Hydroxide (Magnesium Hydrox/Alum Hydrox 30 Ml Oral.Susp) 30 ml PO Q6H PRN PRN Reason: Heartburn/Nausea Last Admin: 12/29/21 14:40 Dose: 30 ml Albuterol Sulfate (Albuterol Sulfate 90 Mcg 8 Gm Inhaler) 2 puff INHALE Q4H PRN PRN Reason: SOB, wheezing Benztropine Mesylate (Benztropine Mesylate 1 Mg Tablet) 2 mg PO BEDTIME [facility] Last Admin: 12/29/21 20:25 Dose: 2 mg Guaifenesin (Guaifenesin 100 Mg/5 Ml Liquid) 5 ml PO Q4H PRN PRN Reason: cough,wheeze Last Admin: 12/30/21 11:23 Dose: 5 ml Hydroxyzine HCl (Hydroxyzine Hcl 25 Mg Tablet) 25 mg PO Q6H PRN PRN Reason: Anxiety Magnesium Hydroxide (Milk Of Magnesia 30 Ml Oral.Susp) 30 ml PO DAILY PRN PRN Reason: Constipation Multivitamins/Vitamin C (Multivitamin Tablet) 1 tab PO BEDTIME [facility] Nicotine (Nicotine 14 Mg Patch.Td24) 14 mg TRANSDERMA DAILY [facility] Last Admin: 12/30/21 07:59 Dose: 14 mg Nicotine Polacrilex (Nicotine Polacrilex 2 Mg Gum) 2 mg BUCCAL Q2H PRN PRN Reason: tobacco cravings Risperidone (Risperidone 2 Mg Tablet) 8 mg PO BEDTIME [facility] Trazodone HCl (Trazodone Hcl 50 Mg Tablet) 50 mg PO BEDTIME PRN PRN Reason: Insomnia Last Admin: 12/28/21 20:47 Dose: 50 mg Allergies Allergies Allergy/AdvReac Type Severity Reaction Status Date / Time doxycycline Allergy Unknown Unknown Verified 12/21/21 18:32 erythromycin base Allergy Unknown Unknown Verified 12/21/21 18:32 Sulfa (Sulfonamide Allergy Unknown Unknown Verified 12/21/21 18:32 Antibiotics) olanzapine AdvReac Unknown Unknown Verified 12/21/21 18:26 Assessment & Plan Assessment & Plan (1) Psychosis: Status: Acute Code(s): F29 - Unspecified psychosis not due to a substance or known physiological condition Plan 66 y.o. 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 The patient is grossly disorganized, very poor historian and unable to take care of herself. Pt seen by hospitalist for routine exam, CXR did not show acute pathology. Will re-start PRN albuterol, continue guaifenesin PRN due to cough. Given nicotine patch. Plan 1. Gather collateral information.? 2. Continue with Risperdal Cogentin and other medications according to the medication reconciliation form.? 3. Medical Treatment 12/28: pt appears at baseline, [facility]. 12/29: No med changes 12/30: Risperdal increased to 8 mg QHS for adherence I spent minutes with the patient and/or on the patient floor today, greater than?50% of which was spent counseling/coordinating care. Patient educated on: medication risk/benefits, therapeutic strategies and other Reason for contiued inpatient stay Substantial Risk for: inability to function and med/psych decompensation
[2021-12-30 18:00] VITALS: BP 124/74; PULSE 97; RESP 16; TEMP 36.4; O2SAT 97
[2021-12-30] MEDS: Benztropine Mesylate 1 MG TABLET 2 MG PO (21:00)
[2021-12-30] MEDS: risperiDONE 2 MG TABLET 8 MG PO (21:00)
[2021-12-31 07:45] VITALS: BP 119/50; PULSE 78; RESP 16; TEMP 36.6; O2SAT 94
[2021-12-31] MEDS: Nicotine 14 MG PATCH.TD24 TRANSDERMA (07:58)
--- NOTE | 2021-12-31 13:11 | P.DS_ITS ---
DS: Providers Provider Date of Service: 12/31/21 Date of admission: 12/21/21 18:14 Date of discharge: 12/31/21 Primary care physician: Unknown Physician Admitting clinician: Deepak Clayton Consults: 12/21/21 18:26 Consult to Hospitalist Routine Consulting Provider: Hospitalist Reason For Exam: routine Attending physician on discharge: Jose Fernández Discharging clinician: Thalia Marroquin DS: Diagnosis Discharge Diagnosis (1) Psychosis: Status: Inactive DS: Medications Discharge Medications Home Medications: Home Medications Medication Instructions Recorded Confirmed Vitamin 1 tab PO DAILY 12/22/21 12/22/21 Previous Rx's Medication Instructions Recorded albuterol sulfate 90 mcg/actuation 2 puff inhalation Q4H PRN SOB, 12/31/21 aerosol inhaler (Ventolin HFA) wheezing #6.7 grams benztropine 1 mg tablet 2 mg PO BEDTIME #30 tabs 12/31/21 risperidone 4 mg tablet (Risperdal) 8 mg PO BEDTIME #60 tabs 12/31/21 Mental Status Exam Mental Status Exam Narrative: Patient Appearance: Well Groomed Patient Orientation: Person and Situation Level of Consciousness: Awake Patient Behavior: Cooperative Mood Description: Constricted Affect Description: Withdrawn Patient Cognition Impaired: Yes Ability to Follow Directions: Good Speech Pattern: Clear Hallucinations: None Delusions: Paranoid Ideation and Bizarre Thought Content: positive for Loose Associations Judgment: Fair Data Data Completed and Pending Completed studies during hospitalization [Text1]: 12/28/21 12/28/21 12/30/21 07:48 10:00 11:14 Sodium 136 Potassium 4.8 Chloride 99 Carbon Dioxide 29 Anion Gap 13 BUN 16 Creatinine 0.81 Estim Creat Clear Calc 64.0 Estimated GFR > 60 Random Glucose 87 Calcium 9.6 D COVID-19 ([facility]) Negative Negative COVID-19 Clin Com See Note See Note Imaging Diagnostic Imaging Impressions Chest X-Ray 12/22/21 13:29 IMPRESSION: Unremarkable examination. DS: Summary Hospital Course Hospital Course: Briana is a 66 y.o. Female who carries a dx of psychosis. She presented [facility] [place] from [facility] after she eloped from a long-term [facility] respite bed in [place] where she had been waiting for permanent placement since 08/2021. Apparently pt went to her old apartment that was empty and condemned. On arrival to the ED, pt was grossly disorganized with several layers of clothing, with disorganized behavior and thought process unable to take care of herself. Pt has been on Risperdal 7.5 mg p.o. q.h.s. and Cogentin 2 mg at bedtime, which were continued during course of hospitalization. Towards the end of her admission, risperdal was changed to 8 mg QHS as pt was complaining that the risperdal tabs did not look like the ones she took at home and the 8 mg formulation she was willing to take. Per pt?s collateral contacts at [facility], she pt is currently at baseline and once a new [facility] respite bed was secured she was deemed safe for discharge. Pt denied SI, SIB. Patient is a very poor historian at baseline. Time spent discussing smoking cessation with patient: 3 to 10 minutes Status at Discharge Functional status at discharge: independent ambulation Overall status at discharge: patient is back to baseline Time Spent with Patient Time attestation: Total time spent providing and/or coordinating discharge services: Discharge Plan Discharge Patient Disposition: Xfer to Respite Facility Discharge Diagnosis: Schizoaffective Disorder Referrals: [facility] Flor Arellano [Other] - 12/31/21 11:00 am ([facility] sheet metal worker maintenance will pick Briana up and transport her to [facility] shelter upon discharge.) Physician,Unknown J [Primary Care Provider] - 1 Week Discharge Medications: New benztropine 1 mg Tablet 2 mg PO BEDTIME Qty: 30 0RF albuterol sulfate [Ventolin HFA] 90 mcg/actuation Hfa Aerosol Inhaler 2 puff inhalation Q4H PRN (Reason: SOB, wheezing) Qty: 6.7 0RF risperidone [Risperdal] 4 mg tablet 8 mg PO BEDTIME Qty: 60 0RF Continued Vitamin 1 tab PO DAILY Label Comments: last filled 11/23/21 for 30 day supply pt states she takes all meds at hs Discontinued Risperdal 7.5 mg PO QPM Label Comments: pharmacy states last picked up 12/03/21 for 30 day supply benztropine [Cogentin] 1 mg Tablet 1 mg PO DAILY Label Comments: pharmacy states order is daily am, pt states she takes all meds at hs last filled 12/03/21 for 30 day supply per pharmacy Mucinex 1,200 mg PO Q12H Rx Instructions: q12h x14 days-ordered on 12/08/21 and never picked up due to not being covered by insurance per pharmacy. Pharmacist questions if pt picked up otc. Discharge Orders: Discharge Order (Routine); Ordered 12/31/21 Ordered By: Thalia Marroquin Diet: Advance to usual diet Activity on Discharge: As tolerated Stand Alone Forms: Patient Portal Discharge page, Community Support Care Plan Goals: Continue psychiatric medications as prescribed and follow up with outpatient referrals and PCP. Health Concerns: Med Adherence Smoking Cessation Plan of Treatment: Attend follow up appointments with OP psych services and PCP Patient will continue on psychotropic medication regimen for mood stability and psychosis. Take medications as directed A one month supply of medication has been sent to your pharmacy Crisis Team if needed [phone] Call and or return if needed Assessment: Risk assessment at time of discharge:? Patient was interviewed prior to discharge and found to be fully oriented and without any SI or HI. Patient has insight and demonstrates good judgment in terms of wanting to pursue treatment. Patient is not in imminent risk of harm to self or others and has a safety plan that includes presenting to the closest ER or calling 911 if feeling unsafe.? Patient has been observed closely by nursing and unit staff throughout admission; patient has not engaged in any behaviors that suggest dangerousness to self or others and has demonstrated appropriate behaviors and impulse control Discharge Date/Time: 12/31/21 11:01
== END 2021-12-31 11:01 | DRG 885 ==
PROVIDERS: Clinical Nurse Specialist Psychiatric/Mental Health, Adult; Psychiatry & Neurology Psychiatry; Registered Nurse; Social Worker; Admitting Provider Psychiatry & Neurology Psychiatry; Visit Provider Psychiatry & Neurology Psychiatry
DX: F25.9 Schizoaffective disorder, unspecified (principal); F17.210 Nicotine dependence, cigarettes, uncomplicated; Z20.822 Contact with and (suspected) exposure to COVID-19; Z71.6 Tobacco abuse counseling; Z88.1 Allergy status to other antibiotic agents; Z88.2 Allergy status to sulfonamides; Z88.8 Allergy status to other drugs, medicaments and biological substances; Z79.899 Other long term (current) drug therapy
CPT/HCPCS: 36415; 71045; 80048; 80053; 80061; 82607; 82746; 83036; 84443; 87635

== ENCOUNTER 2023-08-07 19:41 | Emergency (ER) | payer MEDICARE, MEDICAID, SELFPAY ==
[2023-08-07 19:43] VITALS: BP 112/50; PULSE 68; RESP 20; O2SAT 96; BMI 23.1
[2023-08-07 20:00] VITALS: BP 99/47; PULSE 71
--- NOTE | 2023-08-07 20:10 | PC.NURSE ---
pt refusing temp/recheck bp. pt reports she has always had low bp. pt is axox3 but selective with responses. she will respond appropriately to some questions and otherwise turns head away from this RN and refuse to talk. pt is calm.
--- NOTE | 2023-08-07 20:36 | PC.NURSE ---
Addendum entered by Tiffany Gold 08/07/23 20:43: [facility] number [phone]. Original Note: call from [facility] which is the fdc the pt resides in. Elke called ([phone]) stating this is a 24 hour house however pt is free to come and go as she pleases. pt usually leaves in am and returns by the evening and the fdc does not alert PD until 24 hours as they are aware of pt wandering around. Elke states she believes PD was alerted d/t pt being out of her usual areas of [place] as PD in those [facility] will bring her back to fdc if found. per Elke she states this is pts baseline. pt is pleasant at this time and requested food; sandwich given. Dr. Chavez aware. Elke states pt will need ambulance transfer back to facility but they are accepting as soon as pt is able to be discharged.
--- NOTE | 2023-08-07 20:44 | ED_ITS ---
HPI - Altered Mental Status General Chief Complaint: Altered Mental Status Stated Complaint: AMS, found on ground, psych hx, neg stroke scale Source: EMS Mode of arrival: EMS Limitations: other (Developmental delay) History of Present Illness HPI narrative: Patient comes to the emergency room by ambulance. Patient was found on the ground sitting, talking to herself. Patient answering questions, not making much sense. Patient seems unharmed. Patient poor historian, seems to have developmental delay. We receive a phone call from a half-way in [place]. Patient lives in a half-way. Patient is able to leave in the morning and usually finds her way back to the half-way by the evenings. Today, patient wondered of a little bit more. care home is willing to take the patient back. At baseline, patient is minimally verbal, does not make sense Related Data Home Medications ?Medication ?Instructions ?Recorded ?Confirmed Vitamin 1 tab PO DAILY 12/22/21 12/22/21 Previous Rx's ?Medication ?Instructions ?Recorded albuterol sulfate 90 mcg/actuation 2 puff inhalation Q4H PRN SOB, 12/31/21 aerosol inhaler (Ventolin HFA) wheezing #6.7 grams benztropine 1 mg tablet 2 mg (2 x 1 mg) PO BEDTIME #30 tabs 12/31/21 risperidone 4 mg tablet (Risperdal) 8 mg (2 x 4 mg) PO BEDTIME #60 tabs 12/31/21 Allergies Allergy/AdvReac Type Severity Reaction Status Date / Time doxycycline Allergy Unknown Unknown Verified 08/07/23 19:50 erythromycin base Allergy Unknown Unknown Verified 08/07/23 19:50 Sulfa (Sulfonamide Allergy Unknown Unknown Verified 08/07/23 19:50 Antibiotics) olanzapine AdvReac Unknown Unknown Verified 08/07/23 19:50 Review of Systems 2 Review of Systems: Yes Other (Developmental delay, unable to answer questions at baseline) [facility] Past Medical History Medical History Chronic cough Current every day smoker Psychosis Surgical History History of appendectomy Family History Family History (Updated 12/22/21 @ 12:19 by SHERYL Becerra) Other No significant family history Social History Social History Household Members: Other Household Members Other:: respite Housing: Other Housing Other:: respite Do you presently have visiting nurse or other home services: No Unable to assess alcohol history related to: Unable to respond Patient Tobacco Use Status: Current everyday Tobacco user Tobacco use type: Cigarette Cigarette Packs Per Day: 1 Cigarettes Per Day: 20.0 e-Cigarette/Vaping Use: Never Used Advance Directives: No Advance Directives Information Provided: No service: No Sexual orientation: Don't Know Physical Exam ED Vital Signs: Vital Signs - 24 hr 08/07/23 19:43 08/07/23 20:00 Pulse Rate 71 Respiratory Rate 20 Blood Pressure 99/47 L BMI result Body Mass Index 23.1 Const Other: Appearance: Alert. No acute distress. Disheveled Eyes: Pupils equal, round and reactive to light. ENT: Pharynx normal. Neck: Normal inspection. Neck supple. No lymph nodes noted. No crepitus CVS: Normal heart rate and rhythm. Pulses normal. Normal S1 and S2 Respiratory: No respiratory distress. Breath sounds normal. No Wheezing. No rales Abdomen: Soft and nontender. No rigidity. No distention. Skin: Skin warm and dry. Normal skin color. Normal skin turgor. Extremities: No lower extremity edema. No Lacerations. No Rash Neuro: Oriented X 1. No motor deficit. No sensory deficit. Moving all extremities. No slurred speech. CN 2 through 12 grossly intact Psych: calm, cooperative, normal affect Course Course Course Narrative: -we will obtain basic lab work. -patient awake and alert, eating Medical Decision Making Medical Decision Making [facility] Narrative: My interpretation of labs: White blood cell count slightly bumped 11.3, urinalysis negative for UTI, urine toxicology negative, chemistry within normal limits. -per group homes description, patient is at baseline, ready for discharge Differential Diagnosis Differential Diagnoses: The differential diagnosis associated with the presentation includes (Baseline developmental delay, psych history, polysubstance abuse) Lab Data [facility] Lab Attestation statement: I reviewed the patient's lab results. 08/07/23 20:59 08/07/23 20:59 Labs: Lab Results 08/07/23 08/07/23 Range/Units 20:59 21:06 WBC 11.3 H (4.8-10.8) X10*3/uL RBC 4.41 (4.20-5.50) X10*6/uL Hgb 14.5 (12.0-16.0) g/dl Hct 41.0 (37.0-47.0) % MCV 93.0 (80.0-98.0) fL MCH 32.9 (27.0-33.0) pg MCHC 35.4 H (31.0-35.0) g/dl RDW 13.2 (11.0-16.0) % Plt Count 262 (160-400) X10*3/uL MPV 8.3 L (9.4-12.3) fL Immature Gran % (Auto) 0.3 (0.0-0.4) % Neut % (Auto) 57.4 (45-73) % Lymph % (Auto) 31.6 (20-40) % [place] % (Auto) 7.3 (2-11) % Eos % (Auto) 3.2 (0-4) % Baso % (Auto) 0.2 (0-2) % Lymph # (Auto) 3.6 (1.2-4.9) X10*3/uL [place] # (Auto) 0.8 (0.1-1.2) X10*3/uL Eos # (Auto) 0.4 (0.0-0.4) X10*3/uL Baso # (Auto) 0.0 (0.0-0.2) X10*3/uL Abs Immat Gran (auto) 0.03 (0.00-0.03) X10*3/uL Absolute Neuts (auto) 6.5 (2.0-8.3) x10*3/uL Absolute Nucleated RBC 0.000 (0.0-0.012) X10*3/uL Nucleated RBC % (auto) 0.0 (0.0-0.2) /100WBC Sodium 136 (135-145) mmol/L Potassium 4.0 (3.3-5.1) mmol/L Chloride 101 (96-108) mmol/L Carbon Dioxide 27 (22-29) mmol/L Anion Gap 12 (12-20) BUN 11 (9-16) mg/dL Creatinine 0.77 (0.5-1.4) mg/dL Estim Creat Clear Calc 62.9 Estimated GFR > 60 Random Glucose 92 (60-115) mg/dL Calcium 9.2 (8.4-10.2) mg/dL Urine Color Yellow Urine Appearance Clear Urine pH 6.0 (5.0-9.0) Ur Specific [place] 1.010 (1.005-1.025) Urine Protein Negative (Neg-Trace) mg/dL Urine Glucose (UA) Negative (Negative) mg/dL Urine Ketones Negative (Negative) mg/dL Urine Blood Trace H (Negative) Urine Nitrite Negative (Negative) Ur Leukocyte Esterase Negative (Negative) Urine RBC 3-5 H (0-2) /HPF Urine WBC 0-5 (0-5) /HPF Ur Squamous Epith Cells 0-2 (0-2) /HPF Urine Bacteria None Seen (None Seen) Hyaline Casts 0-2 (0-2) /LPF Urine Opiates Screen Not Detected (Not Detect) Urine Fentanyl Screen Not Detected (Not Detect) Ur Barbiturates Screen Not Detected (Not Detect) Ur Phencyclidine Scrn Not Detected (Not Detect) Ur Amphetamines Screen Not Detected (Not Detect) U Benzodiazepines Scrn Not Detected (Not Detect) Urine Cocaine Screen Not Detected (Not Detect) U Marijuana (THC) Screen Not Detected (Not Detect) Ethyl Alcohol < 10 mg/dL Discharge Plan Discharge Clinical Impression: Mental status at baseline Patient Disposition: Home, Self-Care Additional Instructions: Please follow-up with your primary care physician tomorrow. If you have any worsening or new symptoms, please return to the emergency room or call 911 Prescriptions: No Action Vitamin 1 tab PO DAILY Patient Comments: last filled 11/23/21 for 30 day supply pt states she takes all meds at hs benztropine 1 mg Tablet 2 mg PO BEDTIME Qty: 30 0RF albuterol sulfate [Ventolin HFA] 90 mcg/actuation Hfa Aerosol Inhaler 2 puff inhalation Q4H PRN (Reason: SOB, wheezing) Qty: 6.7 0RF risperidone [Risperdal] 4 mg tablet 8 mg PO BEDTIME Qty: 60 0RF Print Language: Danish
[2023-08-07 21:08] LABS: MANUAL DIFF FLAG NO
[2023-08-07 21:10] LABS: Basophils Percent Auto 0.2 % (0-2); Eosinophils Absolute Auto 0.4 X10*3/uL (0.0-0.4); Eosinophils Percent Auto 3.2 % (0-4); Hemoglobin 14.5 g/dl (12.0-16.0); Imm Gran Abs Auto 0.03 X10*3/uL (0.00-0.03); Imm Gran Pct Auto 0.3 % (0.0-0.4); Lymphocytes Absolute Auto 3.6 X10*3/uL (1.2-4.9); Lymphocytes Percent Auto 31.6 % (20-40); Mean Corpuscular HGB Conc 35.4 g/dl (31.0-35.0); Mean Corpuscular Hemoglobin 32.9 pg (27.0-33.0); Mean Platelet Volume 8.3 fL (9.4-12.3); Monocytes Absolute Auto 0.8 X10*3/uL (0.1-1.2); Monocytes Percent Auto 7.3 % (2-11); Neutrophils Absolute Auto 6.5 x10*3/uL (2.0-8.3); Neutrophils Percent Auto 57.4 % (45-73); Platelet Count 262 X10*3/uL (160-400); Red Blood Count 4.41 X10*6/uL (4.20-5.50); Red Cell Distribution Width 13.2 % (11.0-16.0); White Blood Count 11.3 X10*3/uL (4.8-10.8)
[2023-08-07 21:13] LABS: Appearance Urine Clear; Color Urine Yellow; Glucose Urine UA Negative (Negative); Leukocyte Esterase Urine Negative (Negative); Nitrite Urine Negative (Negative); UMIC TRIGGER UACC YES; Urine Blood Trace (Negative); Urine Ketones Negative (Negative); Urine Protein Negative (Neg-Trace)
[2023-08-07 21:19] LABS: Bacteria Urine None Seen (None Seen); Hyaline Casts Urine 0-2 /LPF (0-2); Squamous Epithelial Cell Urine 0-2 /HPF (0-2); WBC Urine 0-5 /HPF (0-5)
[2023-08-07 21:36] LABS: Amphetamine Screen Urine Not Detected (Not Detect); Barbiturates, Urine Not Detected (Not Detect); Benzodiazepines Screen Urine Not Detected (Not Detect); Cannabinoid Screen Urine Not Detected (Not Detect); Cocaine Screen Urine Not Detected (Not Detect); Fentanyl, urine Not Detected (Not Detect); Opiate Screen Urine Not Detected (Not Detect); Phencyclidine Screen Urine Not Detected (Not Detect)
[2023-08-07 21:44] LABS: Anion Gap 12 (12-20); Blood Urea Nitrogen 11 mg/dL (9-16); Calcium 9.2 mg/dL (8.4-10.2); Carbon Dioxide 27 mmol/L (22-29); Chloride 101 mmol/L (96-108); Creatinine Clr Calc Pharmacy 62.9; Estimated Glomerular Filt Rate > 60; Ethanol < 10 mg/dL; Glucose Random 92 mg/dL (60-115); Sodium 136 mmol/L (135-145)
--- NOTE | 2023-08-07 22:04 | PC.NURSE ---
report given to Elke at [facility] [address] in agreement with pt discharge. ed medical secretary receptionist aware for need for ems transfer to facility.
[2023-08-07 22:40] VITALS: BP 99/47; PULSE 71; RESP 14; TEMP -17.7; TEMP 0
== END 2023-08-07 22:41 | disposition home or self-care (01) ==
PROVIDERS: Emergency Provider Emergency Medicine
DX: R41.82 Altered mental status, unspecified (principal); Z79.899 Other long term (current) drug therapy; Z51.81 Encounter for therapeutic drug level monitoring; M79.7 Fibromyalgia
CPT/HCPCS: 36415; 80048; 80307; 81001; 85025; 99283